=== PATIENT | female | born 1960 | race Two or more races ===

== ENCOUNTER 2017-07-19 21:43 | Emergency (ER) | payer BC ==
[~2017-07-19] VITALS: Ht 157.5 cm; Wt 149.7 kg
[2017-07-19] MEDS ORDERED: AMLODIPINE BESY10 MG ORAL (21:54)
[2017-07-19] MEDS ORDERED: ATORVASTATIN CA20 MG ORAL (21:54)
[2017-07-19] MEDS ORDERED: HYZAAR 50-12.51 EACH ORAL (21:54)
[2017-07-19] MEDS ORDERED: Ketorolac 30mg Inj IV ONE (22:15)
--- NOTE | 2017-07-19 22:18 | Emergency Room Report ---
History of Present Illness General Chief Complaint: Abdominal Pain Source: Patient Present Illness [facility] This a 57-year-old female with history of high blood pressure. She also history of nonalcoholic, non-biliary pancreatitis. She presents with chief point abdominal pain and not feeling well. Also with arm pain and back pain. No fever chills but no nausea no vomiting. No fever chills. Pain is 7 out of 10 throbbing in nature. Denies any other complaint. No urinary complaint. Nothing made it better. Nothing made it worse. Allergies: Coded Allergies: No Known Allergies (Unverified , 07/19/17) Patient History Past Medical History: see triage record, old chart reviewed, HTN Past Surgical History: other Pertinent Family History: none Social History: Denies: smoking Now: No Immunizations: other Reviewed Nursing Documentation: PMH: Agreed; PSxH: Agreed Nursing Documentation-PMH Hx Cardiac Problems: Yes - HIGH CHOLESTEROL Hx Hypertension: Yes Review of Systems Eye: Denies: eye pain, blurred vision ENT: Denies: ear pain, nose congestion, throat swelling Respiratory: Denies: cough, shortness of breath Cardiovascular: Denies: chest pain, palpitations Gastrointestinal: Reports: abdominal pain; Denies: diarrhea, nausea, vomiting Musculoskeletal: Denies: back pain, joint pain Skin: Denies: rash Neurological: Denies: headache, numbness Endocrine: Denies: increased thirst, increased urine Hematologic/Lymphatic: Denies: easy bruising All Other Systems: negative except mentioned in HPI Physical Exam Vital Signs Date Time Temp Pulse Resp B/P (MAP) Pulse Ox O2 Delivery O2 Flow Rate FiO2 07/19/17 21:46 98.3 85 18 120/77 96 Room Air 98.2 vitals normal Sp02 EP Interpretation: reviewed, normal General Appearance: well appearing, no apparent distress, alert, obese Head: normocephalic, atraumatic Eyes: bilateral eye PERRL, bilateral eye EOMI ENT: hearing grossly normal, normal pharynx Neck: full range of motion, supple, no meningismus Respiratory: chest non-tender, lungs clear, normal breath sounds Cardiovascular #1: regular rate, rhythm, no murmur Gastrointestinal: normal bowel sounds, non tender, no mass, no organomegaly, no bruit, non-distended Musculoskeletal: back normal, gait/station normal, normal range of motion Psychiatric: mood/affect normal Skin: warm/dry Medical Decision Making Diagnostic Impression: Primary Impression: Abdominal pain Qualified Codes: R10.84 - Generalized abdominal pain ER Course Patient with gentle has abdominal pain. CT scan unremarkable. Labs unremarkable. No evidence of obstruction. Doubt any leaking AAA. No evidence of ACS, PE, obstruction or acute abdomen. Patient felt better now. We'll discharge home. Lab Results Impression labs normal CT/MRI/US Diagnostic Results CT/MRI/US Diagnostic Results : Imaging Test Ordered: CT abdomen and pelvis Impression Read by radiologist. Appendix. Small saccular AAA as described. Last Vital Signs Date Time Temp Pulse Resp B/P (MAP) Pulse Ox O2 Delivery O2 Flow Rate FiO2 07/19/17 21:46 98.3 85 18 120/77 96 Room Air 98.2 Status: improved Disposition: HOME, SELF-CARE Condition: Stable Scripts Meloxicam* (MOBIC*) 7.5 Mg Tablet 7.5 MG ORAL DAILY, #30 TAB 0 Refills Prov: TAE BEARD M.D. 07/20/17 Patient Instructions: Abdominal Pain, Adult Additional Instructions: Follow-up with your doctor within 7 days if not better. Return if symptom worsen. TAE BEARD M.D. Jul 19, 2017 22:18
[2017-07-19 22:26] LABS: APPEARANCE,URINE CLEAR; BILIRUBIN, URINE NEGATIVE (NEGATIVE); COLOR,URINE PALE YELLOW; GLUCOSE, URINE (UA) NEGATIVE (NEGATIVE); KETONES,URINE NEGATIVE (NEGATIVE); LEUKOCYTE ESTERASE ,URINE NEGATIVE (NEGATIVE); NITRITE,URINE NEGATIVE (NEGATIVE); PH,URINE 5 (4.5-8.0); PROTEIN,URINE NEGATIVE (NEGATIVE); UROBILINOGEN,URINE NORMAL MG/DL (0.0-1.0)
[2017-07-19 22:28] LABS: BASOPHILS % (AUTO) 1.1 % (0.0-2.0); EOSINOPHILS % (AUTO) 2.4 % (0.0-3.0); HEMATOCRIT 45.2 % (37.0-47.0); HEMOGLOBIN 15.4 G/DL (12.0-16.0); MEAN CORPUSCULAR VOLUME 81 FL (80-99); MONOCYTES % (AUTO) 3.9 % (1.0-10.0); NEUTROPHILS % (AUTO) 65.6 % (45.0-75.0); PLATELET COUNT 300 K/UL (150-450); RED CELL DISTRIBUTION WIDTH 12.9 % (11.6-14.8); WHITE BLOOD COUNT 9.9 K/UL (4.8-10.8)
[2017-07-19 22:39] LABS: ANION GAP 9 mmol/L (5-15); BLOOD UREA NITROGEN 14 mg/dL (7-18); CALCIUM 9.8 MG/DL (8.5-10.1); CARBON DIOXIDE 29 MMOL/L (21-32); CHLORIDE 102 MMOL/L (98-107); POTASSIUM 3.4 MMOL/L (3.5-5.1); SODIUM 139 MMOL/L (136-145)
[2017-07-19 22:44] LABS: ALANINE AMINOTRANSFERASE 31 U/L (12-78); ALBUMIN 3.6 G/DL (3.4-5.0); ALBUMIN/GLOBULIN RATIO 0.7 (1.0-2.7); ALKALINE PHOSPHATASE 128 U/L (46-116); ASPARTATE AMINO TRANSFERASE 15 U/L (15-37); BILIRUBIN,TOTAL 0.5 MG/DL (0.2-1.0)
[2017-07-19 23:06] VITALS: BP 135/77
--- NOTE | 2017-07-20 00:12 | Diagnostic Imaging Report ---
EXAM: CT Abdomen and Pelvis Without Intravenous Contrast CLINICAL HISTORY: ABD PAIN TECHNIQUE: Axial computed tomography images of the abdomen and pelvis without intravenous contrast. CTDI is 25.73 MGy and DLP is 1254 mGy-cm One or more of the following dose reduction techniques were used: automated exposure control, adjustment of the mA and/or kV according to patient size, use of iterative reconstruction technique. COMPARISON: No relevant prior studies available. FINDINGS: Lung bases: Unremarkable. No mass. No consolidation. ABDOMEN: Liver: Unremarkable. Gallbladder and bile ducts: Possible cholelithiasis. Pancreas: Unremarkable. No ductal dilation. Spleen: Unremarkable. No splenomegaly. Adrenals: Unremarkable. No mass. Kidneys and ureters: Unremarkable. No obstructing stones. No hydronephrosis. Stomach and bowel: Small sliding-type hiatal hernia. PELVIS: Appendix: Unremarkable appendix. Bladder: Unremarkable. No stones. Reproductive: Unremarkable as visualized. ABDOMEN and PELVIS: Intraperitoneal space: Unremarkable. No free air. No significant fluid collection. Bones/joints: Lumbar spondylosis. No acute fracture. No dislocation. Soft tissues: Unremarkable. Vasculature: Aortic iliac atherosclerosis. 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 This measures 1.5 cm in craniocaudal dimension. It expands the overall lumen of the aorta to 2.3 cm. No evidence of rupture. Lymph nodes: Several mildly enlarged iliac chain lymph nodes in the pelvis. Largest of these along the left pelvic sidewall measures 1.3 cm in short axis. IMPRESSION: No GI or urinary tract obstruction. Unremarkable appendix. Small saccular AAA as described. Small hiatal hernia. Mild pelvic lymphadenopathy.
[2017-07-20] MEDS ORDERED: MOBIC7.5 MG ORAL (00:23)
[2017-07-20 00:35] VITALS: BP_SYST 135; BP_SYST 138; BP_DIAS 77
== END 2017-07-20 00:35 | disposition home or self-care (01) ==
LOC: EMR 22:00
DX: R10.84 Generalized abdominal pain (principal); I10 Essential (primary) hypertension; E78.00 Pure hypercholesterolemia, unspecified
CPT/HCPCS: 36415; 74176; 80053; 81003; 83690; 85025; 96360; 96374; 96375; 99284; J1885